=== PATIENT | female | born 1960 | race Caucasian/White ===

== ENCOUNTER → 2016-09-19 | Outpatient (CLI) | payer MEDICARE, MEDICAID ==
[~2016-09-19] MED LIST: BD ULTRA-FINE1 EAC2 INJECT; BRILINTA90 MG PO; CATAPRES0.1 MG PO; CELEXA40 MG PO; COREG6.25 MG PO; EXCEDRIN MIGRA1 EACH PO; FLEXERIL10 MG PO; GLUCOPHAGE500 MG PO; GOLYTELY4000 ML PO; HALFPRIN81 MG PO; IMDUR30 MG PO; IMODIUM2 MG PO; INVOKANA300 MG PO; KLOR-CON M1010 MEQ PO; LANTUS SOL100 UNIT/1 SUBCUT; LASIX40 MG PO; LIPITOR80 MG PO; LYRICA100 MG PO; MIRALAX17 GM PO; MOBIC15 MG PO; MOTRIN800 MG PO; NITROSTAT0.4 MG SL; ONDANSETRON ODT4 MG PO; PREMARIN0.625 MG PO; PRILOSEC20 MG PO; PRINIVIL10 MG PO; PROAIR HFA8.5 GM INH; PYRIDIUM200 MG PO; RANEXA1000 MG PO; SALINE NASAL SP88 ML NAS; SEROQUEL50 MG PO; SINGULAIR10 MG PO; TOPAMAX50 MG PO; TRAZODONE HCL50 MG PO; URINARY PAIN97.5 MG PO; XANAX2 MG PO; ZITHROMAX250 MG PO
== END | disposition short-term general hospital (02) ==
LOC: CLCARD 09:45
DX: I25.10 Atherosclerotic heart disease of native coronary artery without angina pectoris (principal); R06.02 Shortness of breath; I10 Essential (primary) hypertension; E78.5 Hyperlipidemia, unspecified; E11.9 Type 2 diabetes mellitus without complications; E66.9 Obesity, unspecified; Z95.5 Presence of coronary angioplasty implant and graft

== ENCOUNTER → 2016-10-17 | Outpatient (CLI) | payer MEDICARE, MEDICAID | END | disposition short-term general hospital (02) | LOC: CLCARD 10:23 | DX: I25.10 Atherosclerotic heart disease of native coronary artery without angina pectoris (principal); R06.02 Shortness of breath; E66.9 Obesity, unspecified; I10 Essential (primary) hypertension; E78.5 Hyperlipidemia, unspecified; E11.9 Type 2 diabetes mellitus without complications; Z95.5 Presence of coronary angioplasty implant and graft ==